=== PATIENT | male | born 1970 | race Two or more races ===

== ENCOUNTER 2018-06-12 06:57 | Emergency (ER) | payer MEDICAID ==
[~2018-06-12] VITALS: Ht 167.6 cm; Wt 74.8 kg
[2018-06-12] MEDS ORDERED: ondansetron 4 MG/5 ML oral solution 5ml CUP PO ONE (07:15)
[2018-06-12] MEDS ORDERED: LIDOcaine Viscous 15ml cup PO ONE ×2 (07:15→08:55)
[2018-06-12] MEDS ORDERED: ondansetron 4mg/5ml UD cup PO ONE (07:25)
[2018-06-12 11:55] VITALS: BP 188/92
[2018-06-12] MEDS ORDERED: fentaNYL/PF 50MCG/1 ML 2ML syringe ONE (12:21)
[2018-06-12] MEDS ORDERED: LIDOcaine Viscous 15ml cup ONE (12:22)
[2018-06-12] MEDS ORDERED: MIDAZolam 5mg/5ml vial ONE (12:22)
[2018-06-12 12:42] VITALS: BP 197/100
[2018-06-12 12:52] VITALS: BP 157/82
[2018-06-12 13:02] VITALS: BP 161/98
[2018-06-12] MEDS ORDERED: pantoprazole 40 MG vial IV ONE (13:05)
[2018-06-12] MEDS ORDERED: sucralfate 1gm/10ml UD suspension PO SCH (13:05)
[2018-06-12] MEDS ORDERED: PANT-47 PO (13:07)
[2018-06-12] MEDS ORDERED: SUCR1TAB34 PO (13:07)
[2018-06-12 13:12] VITALS: BP 167/93
[2018-06-12 13:47] VITALS: BP 136/86
== END 2018-06-12 13:48 | disposition home or self-care (01) ==
LOC: ER 07:01
DX: K29.60 Other gastritis without bleeding (principal); K21.9 Gastro-esophageal reflux disease without esophagitis; J45.909 Unspecified asthma, uncomplicated; E11.9 Type 2 diabetes mellitus without complications; F12.90 Cannabis use, unspecified, uncomplicated; Z79.899 Other long term (current) drug therapy; Z88.8 Allergy status to other drugs, medicaments and biological substances
CPT/HCPCS: 43239; 43450; 70360; 96374; 99152; 99285; C9113; J2250; J3010; J7030; 99284; A4620